=== PATIENT | female | born 1980 | race American Indian/Alaskan Native ===

== ENCOUNTER 2018-01-29 09:39 | Outpatient (CLI) | payer OTHER ==
--- NOTE | 2018-01-29 10:33 | Fluoroscopy Report ---
BARIUM SWALLOW: History: Dysphagia. The patient swallows barium without difficulty demonstrating normal coordination. The cervical and thoracic portions of the esophagus demonstrate normal contours. No evidence for ring, web or diverticulum. There is no evidence of a hiatus hernia and no reflux is demonstrated. Mild decreased esophageal motility was suspected and this exam. There is mild delay in clearance of the contrast agent from the esophagus. The patient was able to ingest the barium tablet without difficulty. IMPRESSION: Normal anatomy of the esophagus. Mild esophageal dysmotility or decreased peristalsis is suspected.
== END 2018-01-29 09:40 | disposition home or self-care (01) ==
LOC: FLUORO 09:39
PROVIDERS: ATTEND Internal Medicine Gastroenterology
DX: K21.0 Gastro-esophageal reflux disease with esophagitis (principal); R13.10 Dysphagia, unspecified; J45.909 Unspecified asthma, uncomplicated
CPT/HCPCS: 74220

== ENCOUNTER 2021-01-17 11:03 | Outpatient (CLI) | payer MEDICARE ==
--- NOTE | 2021-01-17 14:04 | Fluoroscopy Report ---
UPPER GI HISTORY: EPIGASTRIC PAIN. TECHNIQUE: Single and double contrast barium technique utilized to evaluate the esophagus, stomach, and duodenal C-loop. FINDINGS: To begin the exam, swallowing was evaluated in the lateral position under direct fluorosco py. Initiation of swallowing appeared significantly delayed in this patient. No penetration or aspir ation was witnessed. No mucosal irregularity, mass, mass effect, or critical stenosis. There were no abnormal tertiary c ontractions as seen with dysmotility. No gastroesophageal reflux. No hiatal hernia. IMPRESSION: The patient had significant difficulty initiating swallowing. Otherwise unremarkable exam. No evidence for mucosal defect, abnormal dilatation or reflux disease. Fluoroscopic time: 4.9 minutes Number of fluoroscopic images: 33 Signer Name: Lj Diaz Jr, MD Signed: 01/17/2021 1:59 PM Workstation Name: [id number]
== END 2021-01-17 11:04 | disposition home or self-care (01) ==
LOC: FLUORO 11:03
PROVIDERS: ATTEND Internal Medicine
DX: K21.00 Gastro-esophageal reflux disease with esophagitis, without bleeding (principal); R10.13 Epigastric pain
CPT/HCPCS: 74246

== ENCOUNTER 2021-12-30 01:53 | Emergency (ER) | payer MEDICARE ==
--- NOTE | 2021-12-30 02:39 | XRay Report ---
CHEST 2 VIEWS INDICATION / CLINICAL INFORMATION: Chest Pain. COMPARISON: 12/26/2013 FINDINGS: SUPPORT DEVICES: None. HEART / MEDIASTINUM: No significant abnormality. LUNGS / PLEURA: No significant pulmonary or pleural abnormality. No pneumothorax. ADDITIONAL FINDINGS: Numerous old healed left rib fractures. Some of the mid and lower fractures have been treated with ORIF. IMPRESSION: 1. No acute pulmonary or pleural disease. Signer Name: Tess Garcia MD Signed: 12/30/2021 2:34 AM Workstation Name: [id number]
[2021-12-30 03:01] LABS: Basophils % (Auto) 0.3 % (0.0-1.8); Eosinophils % (Auto) 0.1 % (0.0-4.3); Hematocrit 37.4 % (30.3-42.9); Hemoglobin 12.1 gm/dl (10.1-14.3); Lymphocytes # (Auto) 1.7 K/mm3 (1.2-5.4); Lymphocytes % (Auto) 15.9 % (13.4-35.0); Mean Corpuscular HGB Conc 32 % (30-34); Mean Corpuscular Volume 71 fl (79-97); Monocytes # (Auto) 0.6 K/mm3 (0.0-0.8); Monocytes % (Auto) 5.7 % (0.0-7.3); Platelet Count 233 K/mm3 (140-440); Red Blood Count 5.26 M/mm3 (3.65-5.03); Red Cell Distribution Width 16.5 % (13.2-15.2)
[2021-12-30 03:10] LABS: BUN/Creatinine Ratio 12; Blood Urea Nitrogen 13 mg/dL (7-17); Calcium 10.1 mg/dL (8.4-10.2); Hemolysis Index 5
--- NOTE | 2021-12-30 09:03 | Emergency Department Report ---
ED Asthma HPI - General Chief Complaint: Chest Pain Stated Complaint: CHEST PAIN/SOB Source: patient Mode of arrival: Ambulatory Limitations: No Limitations - History of Present Illness Initial Comments: 41-year-old female presents to the ED complaining cough x3 days. She states that she was seen by her primary care doctor 2 days ago and was started on steroid. She states she has a history of asthma. She states she came to the ED to make sure that she did not have pneumonia. Patient states that she has been using albuterol nebs and inhaler for wheezing. Patient states she has improved since seeing her doctor 2 days ago . Patient is alert and oriented x3. No acute distress noted. No ill appearance noted. Context: none known Associated Symptoms: dry cough Treatments Prior to Arrival: inhaled bronchodilator, inhaled steroid - Related Data Previous Rx's Medication Instructions Recorded Last Taken Type Albuterol Mdi (or & Nicu Only) 0.043 gm PO DAILY PRN #2 inha 12/27/13 Unknown Rx [ProAir HFA Inhaler] Azithromycin [Zithromax Z-BLAKE] 250 mg PO DAILY #6 tablet 12/27/13 Unknown Rx Ipratropium/Albuterol Sulfate 1 ampul IH TIDRT #30 ampul.neb 12/27/13 Unknown Rx [DUONEB *Not for PRN Use*] Pantoprazole [Protonix TAB] 40 mg PO QDAY #10 tablet 12/27/13 Unknown Rx methylPREDNISolone [Medrol Dose 1 tab PO DAILY #1 packet 12/27/13 Unknown Rx Blake] Allergies Allergy/AdvReac Type Severity Reaction Status Date / Time No Known Allergies Allergy Unverified 12/26/13 18:54 ED Review of Systems ROS: Stated complaint: CHEST PAIN/SOB Other details as noted in HPI Constitutional: denies: chills, fever Eyes: denies: eye pain, eye discharge, vision change ENT: denies: ear pain, throat pain Respiratory: cough. denies: shortness of breath, wheezing Cardiovascular: denies: chest pain, palpitations Endocrine: no symptoms reported Gastrointestinal: denies: abdominal pain, nausea, diarrhea Genitourinary: denies: urgency, dysuria, discharge Musculoskeletal: denies: back pain, joint swelling, arthralgia Skin: denies: rash, lesions Neurological: denies: headache, weakness, paresthesias Psychiatric: denies: anxiety, depression Hematological/Lymphatic: denies: easy bleeding, easy bruising ED Past Medical Hx - Past Medical History Hx Hypertension: No Hx CVA: No Hx Congestive Heart Failure: No Hx Diabetes: No Hx Renal Disease: No Hx Arthritis: No Hx Seizures: No Hx Asthma: No Hx COPD: No Hx HIV: No - Surgical History Hx Pacemaker: No Additional Surgical History: Kidney donor - Social History Smoking Status: Never Smoker - Medications Home Medications: Home Medications Medication Instructions Recorded Confirmed Last Taken Type Albuterol Mdi (or & Nicu Only) 0.043 gm PO DAILY PRN #2 inha 12/27/13 Unknown Rx [ProAir HFA Inhaler] Azithromycin [Zithromax Z-BLAKE] 250 mg PO DAILY #6 tablet 12/27/13 Unknown Rx Ipratropium/Albuterol Sulfate 1 ampul IH TIDRT #30 ampul.neb 12/27/13 Unknown Rx [DUONEB *Not for PRN Use*] Pantoprazole [Protonix TAB] 40 mg PO QDAY #10 tablet 12/27/13 Unknown Rx methylPREDNISolone [Medrol Dose 1 tab PO DAILY #1 packet 12/27/13 Unknown Rx Blake] ED Physical Exam - General Limitations: No Limitations General appearance: alert, in no apparent distress - Head Head exam: Present: atraumatic, normocephalic - Eye Eye exam: Present: normal appearance - ENT ENT exam: Present: mucous membranes moist - Neck Neck exam: Present: normal inspection - Respiratory Respiratory exam: Present: normal lung sounds bilaterally. Absent: respiratory distress - Cardiovascular Cardiovascular Exam: Present: regular rate, normal rhythm. Absent: systolic murmur, diastolic murmur, rubs, gallop - GI/Abdominal GI/Abdominal exam: Present: soft, normal bowel sounds - Extremities Exam Extremities exam: Present: normal inspection - Back Exam Back exam: Present: normal inspection - Neurological Exam Neurological exam: Present: alert, oriented X3 - Psychiatric Psychiatric exam: Present: normal affect, normal mood - Skin Skin exam: Present: warm, dry, intact, normal color. Absent: rash ED Course Vital Signs 12/30/21 01:56 Temperature 98.1 F Pulse Rate 106 H Respiratory 20 Rate Blood Pressure 146/93 [Right] O2 Sat by Pulse 99 Oximetry ED Medical Decision Making - Lab Data Result diagrams: 12/30/21 02:33 12/30/21 02:33 - Radiology Data [facility] [address] [place] [address] XRay Report Signed Patient: EDUARDO PALACIO MR#: [id number] : 1980 Acct:[id number] Age/Sex: 41 / F ADM Date: 12/30/21 Loc: ED Attending Dr: Ordering Physician: JOLENE THOMPSON MD Date of Service: 12/30/21 Procedure(s): XR chest routine 2V Accession Number(s): [id number] cc: ED MD DONNA Fluoro Time In Minutes: CHEST 2 VIEWS INDICATION / CLINICAL INFORMATION: Chest Pain. COMPARISON: 12/26/2013 FINDINGS: SUPPORT DEVICES: None. HEART / MEDIASTINUM: No significant abnormality. LUNGS / PLEURA: No significant pulmonary or pleural abnormality. No pneumothorax. ADDITIONAL FINDINGS: Numerous old healed left rib fractures. Some of the mid and lower fractures have been treated with ORIF. IMPRESSION: 1. No acute pulmonary or pleural disease. Signer Name: Tess Garcia MD Signed: 12/30/2021 2:34 AM Workstation Name: [id number] Transcribed By: Dictated By: Tess Garcia MD Electronically Authenticated By: Tess Garcia MD Signed Date/Time: 12/30/21233 DD/ 2 TD/TT: Print Cancel - Medical Decision Making 41-year-old female presents to the ED complaining cough x3 days. She states that she was seen by her primary care doctor 2 days ago and was started on steroid. She states she has a history of asthma. She states she came to the ED to make sure that she did not have pneumonia. Patient states that she has been using albuterol nebs and inhaler for wheezing. Patient states she has improved since seeing her doctor 2 days ago . Patient is alert and oriented x3. No acute distress noted. No ill appearance noted. Physical examination patient has mild wheezing noted. She states she did not want a breathing treatment here. Patient declined albuterol neb treatment . chest ray showed no abnormality. Physical examination is unremarked Rechecked the patient is resting quietly , comfortable and feeling better. I discussed the results of diagnostic study, my clinical impression and the plan for further treatment with the patient. Patient agrees with plan and discharge at this present time. All question addressed. I have given the patient instruction regarding a diagnosis ,expectation ,follow- up and return precaution. I explained to the patient that emergent condition may arise and to return to the ED for new worsen and any new persisting condition. I have explained the importance of following up with the primary care physician or referral physician listed below has instructed. The patient verbalized understanding of discharge instruction. Critical care attestation.: If time is entered above; I have spent that time in minutes in the direct care of this critically ill patient, excluding procedure time. ED Disposition Clinical Impression: Asthma Qualifiers: Asthma severity: mild Asthma persistence: intermittent Asthma complication type: unspecified Qualified Code(s): J45.20 - Mild intermittent asthma, uncomp licated Disposition: 01 HOME / SELF CARE / HOMELESS Is pt being admited?: No Does the pt Need Aspirin: No Condition: Stable Instructions: Asthma (ED), Asthma, Adult Additional Instructions: Take medication as prescribed Return to the ED for any worsening symptom Continue to take medication prescribed to you by your PCP Referrals: [facility] [Provider Group] - 3-5 Days Forms: Work/School Release Form(ED) Time of Disposition: 09:34
[2021-12-30 10:29] VITALS: BP 135/86
--- NOTE | 2021-12-30 10:33 | Electrocardiograph Report ---
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
--- NOTE | 2021-12-31 11:44 | Electrocardiograph Report ---
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 Electronically Signed On 12-31-2021 11:45:03 EDT by Narciso Garcia
== END 2021-12-30 10:28 | disposition home or self-care (01) ==
LOC: ED 01:53
DX: J45.901 Unspecified asthma with (acute) exacerbation (principal)
CPT/HCPCS: 36415; 71046; 80048; 84484; 85025; 93005; 99283